=== PATIENT | male | born 1980 | race Caucasian/White ===

== ENCOUNTER 2016-04-10 18:04 | Day surgery (SDC) | payer BC ==
[2016-04-10] MEDS ORDERED: ERTAPENEM 1 GM in NS 100 ML IV ONE (18:30)
--- NOTE | 2016-04-10 18:44 | GHP ---
[f rep st] HISTORY AND PHYSICAL DATE OF ADMISSION: 04/10/2016 DATE OF EVALUATION: 04/10/2016 CHIEF COMPLAINT: Acute appendicitis. HISTORY OF PRESENT ILLNESS: The patient is a 35-year-old man who developed abdominal pain on Thursday . It was vague, it persisted and so he presented to go see Shelia Painter. A CT scan of the abdome n and pelvis was performed which showed an inflamed appendix measuring 10 mm without evidence of rupt ure. He forced himself to throw up on Thursday night but has not had emesis since then. He has had d ecreased appetite. PAST MEDICAL HISTORY: Chlamydia, herpes simplex, HIV/AIDS well controlled and seizure disorder. PAST SURGICAL HISTORY: Right hand surgery. MEDICATIONS: EpiPen, Triumeq, Alma as needed, Benadryl as needed, echinacea, fish oil, multivitam in, vitamin D. ALLERGIES: Aspirin, anaphylaxis. Keflex, burning and rash. FAMILY MEDICAL HISTORY: Father is . His mother is healthy. He has a sister. SOCIAL HISTORY: He drinks approximately a beer every day. He smokes almost a pack of cigarettes vishal ry day for 20 years. He denies IV drug use. He lives with his partner, Jeremiah. 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 REVIEW OF SYSTEMS: A 10-point review of systems otherwise negative. PHYSICAL EXAMINATION: GENERAL: A pleasant, well-nourished, well-groomed man sitting up in [facility], a ppears well. HEENT: Normocephalic. No gross hearing deficits. Mucous membranes moist. Pupils equ al and round. No scleral icterus. Both ears are pierced. He is missing some teeth and has a remova ble plate. LUNGS: Clear to auscultation bilaterally. No increased work of breathing. CARDIAC: Re gular rate. ABDOMEN: Bowel sounds present, soft. Negative Rovsing's sign. He is tender in the rig ht lower quadrant. SKIN: Warm and dry. Tattoo right forearm. MUSCULOSKELETAL: Normal nails. IMPRESSION AND PLAN: The patient is a 35-year-old with acute appendicitis. I will take him to the o perating room for a laparoscopic appendectomy. The risks and benefits, including, but not limited to , stroke, heart attack, , blood clots, infection, bleeding, damage to surrounding structures suc h as bowel and bladder were discussed. He had his questions answered to his satisfaction. /[id number]/MODL
[2016-04-10] MEDS ORDERED: PROMETHAZINE HCL 25 MG/ML INJ ONE (19:17)
[2016-04-10] MEDS ORDERED: fentaNYL 100 MCG/2 ML INJ ONE (19:24)
--- NOTE | 2016-04-10 19:34 | GOP ---
[f rep st] OPERATIVE REPORT DATE OF OPERATION: 04/10/2016 SURGEON: Moriah Cortés MD ANESTHESIA: General. ANESTHESIOLOGIST: Dr. Yoko Trent. PREOPERATIVE DIAGNOSIS: Acute appendicitis. POSTOPERATIVE DIAGNOSIS: Acute appendicitis. PROCEDURE PERFORMED: Laparoscopic appendectomy. FINDINGS: Large inflamed appendix. ESTIMATED BLOOD LOSS: 10 cc. INDICATIONS: Willi Yarbrough is a 35-year-old, who has had abdominal pain for [address] scan wit h appendicitis. DESCRIPTION OF PROCEDURE: Willi was brought into the operating room, placed supine on the table, an d general anesthesia was administered. His abdomen was prepped and draped in the usual sterile fashi on. I infiltrated all sites with 0.5% Marcaine prior to making incisions. I elevated his umbilicus. I inserted the Veress needle, passed the hanging drop test. His abdomen insufflated easily to a pr essure of 15 mmHg. Under direct vision, I placed a 5 mm suprapubic trocar and a 10 mm trocar in the left lower quadrant. I identified his appendix. It was adhered to the retroperitoneum. I divided t he attachments with the Harmonic Scalpel. I divided the mesoappendix with the Harmonic Scalpel. The base of the appendix was divided with an Endo-BRENDA 45 white load. It was placed in an EndoCatch bag and retrieved via the 10 mm trocar. I inspected the abdomen for hemostasis. There was a small bleed ing vessel which was ligated with the Harmonic Scalpel. Hemostasis was achieved at the staple line. The ports were removed under direct vision. The abdomen was allowed to desufflate. The fascia at t he 10 mm trocar site was closed with 0 Vicryl. Skin closed with 4-0 Vicryl. Dermabond applied. He was awakened in the operating room, extubated, transferred to PACU in stable condition. /[id number]/MODL
[2016-04-10] MEDS ORDERED: OXYCODONE/APAP 5/325 TAB ONE (19:58)
== END 2016-04-10 20:40 | disposition home or self-care (01) ==
LOC: FSGY 18:04 → UNDOADMIN 18:04 → F3E 18:04 → EDSTATUS 18:30 → FSGY 20:40
PROVIDERS: ATTEND Surgery
PROC: 0DTJ4ZZ Resection of Appendix, Percutaneous Endoscopic Approach (ICD-10-PCS; principal; 2016-04-10 18:30)
DX: K35.80 Unspecified acute appendicitis (principal); Z21 Asymptomatic human immunodeficiency virus [HIV] infection status; G40.909 Epilepsy, unspecified, not intractable, without status epilepticus; F17.210 Nicotine dependence, cigarettes, uncomplicated
CPT/HCPCS: J1335; J2550; J3010

== ENCOUNTER → 2016-04-10 | Outpatient (CLI) | payer BC, OTHER ==
[~2016-04-10] MED LIST: BUPIVACAINE 0.5% 30 ML SDV ONE; GLYCOPYRROLATE 0.2 MG/1 ML VIAL ONE; IOPAMIDOL (ISOVUE-300) 100 ML BTL IV ONE; METOCLOPRAMIDE 10 MG/2 ML VIAL ONE; NEOSTIGMINE METHYLSULFATE 5 MG/5 ML SYR ONE; ONDANSETRON 4 MG/2 ML VIAL ONE; PROPOFOL 200 MG/20 ML VIAL ONE; ROCURONIUM 50 MG/5 ML VIAL ONE; SKIN ADHESIVE (DERMABOND) 1 EACH TP ONE; SUGAMMADEX SODIUM 200 MG/2 ML VIAL IVP ONE; fentaNYL 100 MCG/2 ML INJ ONE
--- NOTE | 2016-04-10 16:46 | CT ---
CT Abdomen and Pelvis With Contrast History: Lower abdominal pain. Comparison: Renal ultrasound December 30, 2010. Technique: Axial contrast-enhanced images were obtained through the abdomen and pelvis following the uneventful administration of 90 mL Isovue-300 intravenous contrast. Creatinine is 1.2. Dose reduction techniques were utilized. Findings: Abdomen: The lung bases are clear. Heart size is normal. The liver, gallbladder, spleen, pancreas, and adrenals are normal. Renal contours are lobulated bilat erally with scattered areas of cortical thinning that could be related to scarring. A nonobstructing 3 mm right inferior renal stone is noted. Moderate stool is present in the proximal colon. The colon and small bowel are normal caliber without evidence of obstruction. The appendix is enlarged and hyperemic, measuring 10 mm (series 4 image 170 e.g.), with moderate periappendiceal inflammation, with no free air or visible abscess. Trace periap pendiceal fluid is present. The appendix arises from the medial aspect of the cecum and extends infer iorly into the pelvis.. The aorta is normal caliber. The IVC, hepatic, portal, splenic, and superior mesenteric veins are pat ent. Scattered mildly prominent calcified mesenteric lymph nodes are present. The bones are normal. Pelvis: The bladder is normal. Numerous prostatic calcifications are present. No pathologically enlar ged lymph nodes are identified. No aggressive osseous lesions are identified. Impression: 1. Acute appendicitis without perforation or abscess. 2. Calcified mesenteric lymph nodes, likely related to prior granulomatous disease. 3. Moderate stool in the proximal colon. 4. Additional findings as above. Findings discussed with Shelia Painter today at 1640 hours.
== END ==
LOC: FIMAGING 15:30
PROVIDERS: ATTEND Nurse Practitioner
DX: K35.80 Unspecified acute appendicitis (principal); R63.0 Anorexia; I89.8 Other specified noninfective disorders of lymphatic vessels and lymph nodes
CPT/HCPCS: J2405; J2704; J2710; J2765; J3010; Q9967

== ENCOUNTER 2017-06-23 05:53 | Emergency (ER) | payer BC, OTHER ==
[2017-06-23] MEDS ORDERED: ONDANSETRON 4 MG/2 ML VIAL IVP ONE (06:01)
[2017-06-23] MEDS ORDERED: NS 1,000 ML IV ONE (06:01)
[2017-06-23] MEDS ORDERED: HYDROmorphONE/DILAUDID 2 MG/ML INJ IVP ONE (06:15)
[2017-06-23] MEDS ORDERED: KETOROLAC 15 MG/1 ML SDV IVP ONE (06:15)
[2017-06-23] MEDS ORDERED: LIDOCAINE 1% 100 MG in NS 100 ML IV ONE (06:16)
[2017-06-23 06:20] LABS: PLATELET COUNT 298 10^3/uL (150-400)
--- NOTE | 2017-06-23 06:21 | EDPHY ---
H & P Stated Complaint: WOKE WITH RIGHT FLANK PAIN, VOMITED FROM PAIN Source: Patient Exam Limitations: No limitations - Personal History Current Tetanus/Diphtheria Vaccine: Yes Current Tetanus Diphtheria and Acellular Pertussis (TDAP): Yes - Medical/Surgical History Hx Asthma: No Hx Chronic Respiratory Disease: No Hx Diabetes: No Hx Cardiac Disease: No Hx Renal Disease: No Hx Cirrhosis: No Hx Alcoholism: No Hx HIV/AIDS: Yes Hx Splenectomy or Spleen Trauma: No Other PMH: HIV - Social History Smoking Status: Current every day smoker Time Seen by Provider: 06/23/17 06:00 HPI/ROS: HPI The patient presents with right flank pain which awoke him from sleep about 1 hr ago. Pain started suddenly and has been constant ever since. The pain is severe and achy and radiates toward his right testicle. He has had 2 episodes of vomiting. He has not been able to urinate since the pain occurred. A few days ago he did have hematuria. He has no prior history of similar. He denies any abdominal pain. He denies any constipation. He does not have a rash.. REVIEW OF SYSTEMS Constitutional: No fever, no chills. Eyes: No discharge. ENT: No sore throat. Cardiovascular: No chest pain, no palpitations. Respiratory: No cough, no shortness of breath. Gastrointestinal: No abdominal pain, no vomiting. Genitourinary: Positive for hematuria. Musculoskeletal: No back pain. Skin: No rashes. Neurological: No headache. PMHx: HIV on anti-retroviral therapy Soc Hx: Housed PHYSICAL General Appearance: Alert, uncomfortable appearing Eyes: Pupils equal and round no pallor or injection ENT, Mouth: Mucous membranes moist Respiratory: There are no retractions, lungs are clear to auscultation Cardiovascular: Regular rate and rhythm Gastrointestinal: Abdomen is soft and non-tender, no masses, bowel sounds normal Back: There is right-sided flank tenderness to palpation Neurological: A&O, moves all extremities Skin: Warm and dry, no rashes Musculoskeletal: Neck is supple non tender Extremities: symmetrical, full range of motion Psychiatric: Patient is oriented X 3, there is no agitation (Riguzzi,Aydee) Constitutional: Initial Vital Signs Temperature (C) 36.5 C 06/23/17 05:56 Heart Rate 84 06/23/17 05:56 Respiratory Rate 18 06/23/17 05:56 Blood Pressure 133/92 H 06/23/17 05:56 O2 Sat (%) 96 06/23/17 05:56 O2 Delivery Mode Room Air Allergies/Adverse Reactions: aspirin [From Aspirin Regimen Giovany/Calcium] Allergy (Severe, Verified 06/23/17 05:58) Anaphylaxis calcium carbonate [From Aspirin Regimen Giovany/Calcium] Allergy (Severe, Verified 06/23/17 05:58) Anaphylaxis cephalexin [Cephalexin] Allergy (Severe, Verified 06/23/17 05:58) Rash Home Medications: Medication Instructions Recorded Abacavir/Dolutegravir/Lamivudi 1 tab PO DAILY 04/10/16 [Triumeq Tablet] Ciprofloxacin [Cipro] 500 mg PO BID #14 tab 06/23/17 Hydrocodone/APAP 5/325 [[place] 1 - 2 tab PO Q6H PRN #15 tab 06/23/17 5/325 (*)] Ondansetron Odt [Zofran Odt 4 mg 4 mg PO Q4 PRN #10 tab 06/23/17 (*)] Tamsulosin HCl [Flomax 0.4 MG (*)] 0.4 mg PO DAILY #10 cap 06/23/17 Medical Decision Making - Diagnostics Imaging Results: Imaging Impressions Abdomen/Pelvis CT 06/23/17 08:46 Impression: 1. Moderate right hydronephrosis secondary to obstructing 9 x 7 mm calculus at the ureteropelvic junction. 2. Normal left upper urinary tract. 3. Benign old granulomatous disease similar to April 2016. Findings discussed with Emergency Department physician, Sarkis Glass MD, on 06/23/2017 at 9:15 a.m. Attention: This CT examination is specifically designed to evaluate patients who are clinically suspected of having acute obstructive uropathy. This examination does not use radiographic contrast, and as such, provides only a limited evaluation of the abdomen, pelvis and retroperitoneum. If there is further clinical suspicion for pathological conditions other than obstructive uropathy, a complete CT evaluation of the abdomen and pelvis utilizing intravenous, oral, and rectal contrast should be considered. KUB shows no obvious kidney stone, interpreted by me, radiology interpretation is pending. (Aydee Cevallos) Procedures: Bedside limited abdominal Ultrasound- performed and interpreted by me. Indication: Right Sided flank pain Findings: Right-sided moderate hydronephrosis, no free fluid in Morison's pouch , no left-sided hydronephrosis Impression: Moderate right-sided hydronephrosis (Aydee Cevallos) ED Course/Re-evaluation: This is a 36-year-old male with HIV who presents with right-sided flank pain which has been present for the last hour in association with nausea and vomiting. On arrival, he is uncomfortable appearing with flank tenderness. Differential diagnosis includes ureterolithiasis, pyelonephritis, varicella zoster. (Aydee Cevallos) Differential Diagnosis: This is a 36-year-old male with HIV on anti-retroviral medication who presents from home with severe right-sided flank pain which began just prior to presentation and is associated with nausea and vomiting. On exam, he is uncomfortable appearing, he has tenderness of his right flank. Differential diagnoses ureterolithiasis, pyelonephritis, varicella zoster. In the emergency department, IV line established and patient was given IV fluids , Zofran, Toradol, Dilaudid, lidocaine. This caused improvement in his symptoms. Bedside ultrasound was performed which did demonstrate hydronephrosis. I suspect he is suffering from ureterolithiasis. He is improving after receiving pain medication. At change of shift at 7:00 a.m., patient's UA is pending. I anticipate he will be able to go home. If he does have any signs of infection he should be treated with antibiotics. I have discussed the diagnosis of kidney stone and treatment plan with him. (Aydee Cevallos) Other Provider: Patient signed out to me at 0 700 pending urinalysis results. At approximately 0 800, radiologist called me to inform me that the stone seen on x-ray measures approximately 11 mm. Given this information, I performed a CT scan of the abdomen and pelvis which confirms an 11 x 9 x 7 mm stone at the proximal right ureter. I consulted Dr. Dane Cobb from Urology who will see the patient later today in the office. Patient's pain was well controlled. (Sarkis Glass) - Data Points Laboratory Results: Laboratory Results 06/23/17 06:14 06/23/17 06:14 Medications Given: Discontinued Medications Hydromorphone HCl (Dilaudid) 1 mg IVP EDNOW ONE Stop: 06/23/17 06:16 Last Admin: 06/23/17 06:24 Dose: 1 mg Sodium Chloride (Ns) 1,000 mls @ 0 mls/hr IV ONCE ONE; Wide Open PRN Reason: Protocol Stop: 06/23/17 06:02 Last Admin: 06/23/17 06:22 Dose: 1,000 mls Lidocaine HCl 100 mg/ Sodium (Chloride) 110 mls @ 600 mls/hr IV EDNOW ONE Stop: 06/23/17 06:26 Last Admin: 06/23/17 06:50 Dose: 110 mls Ketorolac Tromethamine (Toradol) 15 mg IVP EDNOW ONE Stop: 06/23/17 06:16 Last Admin: 06/23/17 06:26 Dose: 15 mg Ondansetron HCl (Zofran) 4 mg IVP EDNOW ONE Stop: 06/23/17 06:02 Last Admin: 06/23/17 06:23 Dose: 4 mg Departure - Departure Disposition: Home, Routine, Self-Care Clinical Impression: Ureterolithiasis Condition: Good Instructions: Renal Colic (ED) Additional Instructions: Call the office of Dr. Cobb from Urology as soon as you are discharged to be seen in the office this afternoon. [phone]. 1. Take Ibuprofen or Motrin 600 mg by mouth three times a day. 2. Percocet as needed for severe pain 3. Flomax as directed 4. Zofran as needed for nausea 5. Strain urine as directed 6. Return to the Emergency Department for intractable pain, fever or vomiting. Referrals: Shelia Painter NP [Primary Care Provider] - As per Instructions Laureano Walker MD [Medical Doctor] - As per Instructions Prescriptions: Ciprofloxacin [Cipro] 500 mg PO BID #14 tab Hydrocodone/APAP 5/325 [[place] 5/325 (*)] 1 - 2 tab PO Q6H PRN #15 tab PRN Reason: Pain, Breakthrough Ondansetron Odt [Zofran Odt 4 mg (*)] 4 mg PO Q4 PRN #10 tab PRN Reason: Nausea/Vomiting, Can'T Take Po Tamsulosin HCl [Flomax 0.4 MG (*)] 0.4 mg PO DAILY #10 cap
[2017-06-23 10:46] VITALS: BP 145/96
== END 2017-06-23 10:35 | disposition home or self-care (01) ==
DX: N20.1 Calculus of ureter (principal); B20 Human immunodeficiency virus [HIV] disease; E86.9 Volume depletion, unspecified; F17.200 Nicotine dependence, unspecified, uncomplicated
CPT/HCPCS: 96374; J1170; J1885; J2405